=== PATIENT | male | born 1955 | race Caucasian/White ===

== ENCOUNTER 2017-08-04 17:24 | Emergency (ER) | payer BC ==
[~2017-08-04] VITALS: Ht 175.3 cm; Wt 77.8 kg
[~2017-08-04 17:24] MED LIST: BAYER ASA325 MG PO; BENADRYL25 MG OR; CIPRO500 MG OR; CIPRO500 MG PO; CLONIDINE0.1 MG OR; DARVOCET-N 100100 MG OR; DIAZEPAM2 MG PO; HYDROCHLOROT12.5 MG OR; HYDROCHLOROT12.5 MG PO; HYDROMET1 M1 OR; HYZAAR1 TA1 OR; LISINOP/HCTZ1 TA1 OR; LISINOPRIL20 M1 PO; LISINOPRIL20 MG PO; NAPROSYN500 MG OR; NAPROSYN500 MG PO; NICODERM C21 MG/241 TD; PEPCID20 MG PO; PHENERGAN25 MG/TAB PO; PREDNISONE10 MG PO; PRILOSEC20 MG PO; PROMETH/COD1 ML OR; TRIMOX500 MG PO; VALIUM2 MG PO; ZANTAC150 M1 PO; ZANTAC150 MG OR; ZESTRIL20 MG OR; ZOLOFT50 MG OR
[2017-08-04 19:31] LABS: ALBUMIN 4.9 g/dL (3.2-5.0); ALKALINE PHOSPHATASE 68 u/l (38-126); ANION GAP 17 (6-22 (CALC)); BILIRUBIN, TOTAL 0.9 mg/dL (0.0-1.4); BUN 11 mg/dL (9-20); BUN/CREATININE RATIO 13 (12-20 (CALC)); CALCIUM 9.9 mg/dL (8.4-10.2); CARBON DIOXIDE 24 mmol/l (22-30); CHLORIDE 107 mmol/l (95-108); CREATININE 0.9 mg/dL (0.7-1.3); GFR > 60 ML/MIN (>=60 (CALC)); GFR FOR AFR.AMER. > 60 ML/MIN (>=60 (CALC)); GLUCOSE 100 mg/dL (75-110); POTASSIUM 3.8 mmol/l (3.5-5.1); SGOT/AST 23 u/l (17-59); SGPT/ALT 35 u/l (21-72); SODIUM 144 mmol/l (137-146); TOTAL PROTEIN 7.8 g/dL (6.3-8.2)
[2017-08-04 19:37] LABS: HEMATOCRIT 48.7 % (39.0-50.0); HEMOGLOBIN 17.1 g/dl (14.0-18.0); IMMATURE GRANULOCYTES 0.3 % (0.0-1.0); MEAN CELL VOLUME 96.6 fL CALC (80.0-100.0); MEAN CORPUSCULAR HGB 33.9 pG CALC (26.0-32.0); MEAN CORPUSCULAR HGB CONC 35.1 g/L CALC (32.0-36.0); NEUT# 8.98 thou/uL (1.82-7.42); RED BLOOD COUNT 5.04 mill/uL (4.70-6.10); RED CELL DISTRI WIDTH 12.5 % (11.5-15.5)
[2017-08-04] MEDS ORDERED: AMOXICILLIN500 MG PO (20:19)
[2017-08-04 20:22] VITALS: BP 158/97
== END 2017-08-04 20:25 | disposition left against medical advice (07) | DRG 395 ==
LOC: ED 17:24
PROVIDERS: Emergency Medicine
DX: T18.128A Food in esophagus causing other injury, initial encounter (principal); I10 Essential (primary) hypertension; F32.9 Major depressive disorder, single episode, unspecified; F10.20 Alcohol dependence, uncomplicated; F17.210 Nicotine dependence, cigarettes, uncomplicated; X58.XXXA Exposure to other specified factors, initial encounter; Z91.19 Patient's noncompliance with other medical treatment and regimen
CPT/HCPCS: J1610

== ENCOUNTER 2017-08-09 18:51 | Emergency (ER) | payer BC ==
[~2017-08-09] VITALS: Ht 175.3 cm; Wt 81.6 kg
[~2017-08-09 18:51] MED LIST changes: +AMOXICILLIN500 MG PO
[2017-08-09 20:35] VITALS: BP 136/70
[2017-08-09] MEDS ORDERED: PERCOCET 5/325M1 TAB PO (21:07)
== END 2017-08-09 20:36 | disposition home or self-care (01) | DRG 605 ==
LOC: ED 18:51
PROC: 0HQGXZZ Repair Left Hand Skin, External Approach (ICD-10-PCS; principal; 2017-08-09)
DX: S61.012A Laceration without foreign body of left thumb without damage to nail, initial encounter (principal); W31.2XXA Contact with powered woodworking and forming machines, initial encounter; Y93.H3 Activity, building and construction; Y92.009 Unspecified place in unspecified non-institutional (private) residence as the place of occurrence of the external cause

== ENCOUNTER 2019-07-24 11:05 | Emergency (ER) | payer BC ==
[~2019-07-24] VITALS: Ht 175.3 cm; Wt 100.0 kg
[~2019-07-24 11:05] MED LIST changes: +PERCOCET 5/325M1 TAB PO
[2019-07-24] MEDS ORDERED: ASPIRIN ADULT L81 M2 PO (11:39)
[2019-07-24 11:53] LABS: HEMOGLOBIN 15.8 g/dl (14.0-18.0); IMMATURE GRANULOCYTES 0.2 % (0.0-5.0); MEAN CELL VOLUME 94.5 fL CALC (80.0-100.0); MEAN CORPUSCULAR HGB 32.4 pG CALC (26.0-32.0); MEAN CORPUSCULAR HGB CONC 34.3 g/L CALC (32.0-36.0); NEUT# 6.65 thou/uL (1.82-7.42); RED BLOOD COUNT 4.87 mill/uL (4.70-6.10); RED CELL DISTRI WIDTH 12.2 % (11.5-15.5)
[2019-07-24 12:05] LABS: ANION GAP 14 (6-22 (CALC)); BUN 14 mg/dL (8-23); BUN/CREATININE RATIO 15 (12-20 (CALC)); CARBON DIOXIDE 25 mmol/l (22-30); CHLORIDE 105 mmol/l (95-108); CREATININE 0.9 mg/dL (0.7-1.3); GFR > 60 ML/MIN (>=60 (CALC)); GFR FOR AFR.AMER. > 60 ML/MIN (>=60 (CALC)); POTASSIUM 4.1 mmol/l (3.5-5.1); SODIUM 140 mmol/l (137-146)
[2019-07-24] MEDS ORDERED: NORVASC2.5 M1 PO (13:14)
[2019-07-24 13:15] LABS: TSH, 3RD GENERATION 1.26 uIU/mL (0.47 - 4.68)
[2019-07-24 13:21] VITALS: BP 166/85
== END 2019-07-24 13:28 | disposition home or self-care (01) | DRG 305 ==
LOC: ED 11:05
PROVIDERS: Family Medicine
DX: I10 Essential (primary) hypertension (principal); J44.9 Chronic obstructive pulmonary disease, unspecified; F17.200 Nicotine dependence, unspecified, uncomplicated

== ENCOUNTER 2020-12-01 09:57 | Emergency (ER) | payer SELFPAY ==
[~2020-12-01] VITALS: Ht 175.3 cm; Wt 85.0 kg
[~2020-12-01 09:57] MED LIST changes: +ASPIRIN ADULT L81 M2 PO; +NORVASC2.5 M1 PO
[2020-12-01 10:49] LABS: HEMATOCRIT 49.4 % (39.0-50.0); HEMOGLOBIN 16.5 g/dl (14.0-18.0); IMMATURE GRANULOCYTES 0.3 % (0.0-5.0); MEAN CELL VOLUME 98.2 fL CALC (80.0-100.0); MEAN CORPUSCULAR HGB 32.8 pG CALC (26.0-32.0); MEAN CORPUSCULAR HGB CONC 33.4 g/dL CAL (32.0-36.0); NEUT# 7.25 thou/uL (1.82-7.42); RED BLOOD COUNT 5.03 mill/uL (4.70-6.10); RED CELL DISTRI WIDTH 12.6 % (11.5-15.5)
[2020-12-01 11:10] LABS: ALBUMIN 4.1 g/dL (3.2-5.0); ALKALINE PHOSPHATASE 61 u/l (38-126); ANION GAP 10 (6-22 (CALC)); BILIRUBIN, TOTAL 0.5 mg/dL (0.0-1.4); BUN 11 mg/dL (8-23); BUN/CREATININE RATIO 12 (12-20 (CALC)); CARBON DIOXIDE 26 mmol/l (22-30); CHLORIDE 107 mmol/l (95-108); CREATININE 0.9 mg/dL (0.7-1.3); GFR > 60 ML/MIN (>=60 (CALC)); GFR FOR AFR.AMER. > 60 ML/MIN (>=60 (CALC)); POTASSIUM 3.5 mmol/l (3.5-5.1); PROTHROMBIN TIME 9.9 SECONDS (9.0-12.5); SGOT/AST 30 u/l (19-48); SODIUM 139 mmol/l (137-146)
[2020-12-01] MEDS ORDERED: LISINOPRIL20 MG PO (11:27)
[2020-12-01 11:50] VITALS: BP 156/86
== END 2020-12-01 11:47 | disposition home or self-care (01) | DRG 305 ==
LOC: ED 09:57
PROVIDERS: Emergency Medicine
DX: I10 Essential (primary) hypertension (principal); R04.0 Epistaxis; J44.9 Chronic obstructive pulmonary disease, unspecified; F17.200 Nicotine dependence, unspecified, uncomplicated